=== PATIENT | female | born 1950 | race African-American/Black ===

== ENCOUNTER 2016-10-03 13:28 | Emergency (ER) | payer MEDICAID ==
[~2016-10-03] VITALS: Ht 157.5 cm; Wt 91.0 kg
[~2016-10-03 13:28] MED LIST: CIPR500T4 PO; CLON.2 PO; GABA100C4 PO; LISI-363 PO; METH750T2 PO; METO50CR PO; MOBI15TA PO; POTA-267 PO; PRAV20 PO; TRAM50 PO
[2016-10-03 13:29] VITALS: BP 143/81; PULSE 58; RESP 16; TEMP 98.1; O2SAT 95
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
[2016-10-03 14:25] VITALS: RESP 18; O2SAT 98
[2016-10-03 14:33] LABS: AUTOMATED NEUTROPHIL # 3.5 TH/MM3 (1.8-7.7); BASOPHIL # 0.1 TH/MM3 (0-0.2); EOSINOPHIL # 0.1 TH/MM3 (0-0.4); EOSINOPHIL % 1.4 % (0.0-4.0); HEMATOCRIT 37.3 % (35.0-46.0); HEMO FLAGS DIFF FINAL; LYMPH % 31.2 % (9.0-44.0); MEAN CELL VOLUME 86.5 FL (80.0-100.0); MEAN CORPUSCULAR HEMOGLOBIN 29.4 PG (27.0-34.0); MEAN CORPUSCULAR HGB CONC 33.9 % (32.0-36.0); MONO % 10.4 % (0.0-8.0); PLATELET COUNT 192 TH/MM3 (150-450); RED BLOOD COUNT 4.31 MIL/MM3 (4.00-5.30); RED CELL DISTRIBUTION WIDTH 15.1 % (11.6-17.2); WHITE BLOOD COUNT 6.3 TH/MM3 (4.0-11.0)
[2016-10-03 14:38] LABS: APTT (PATIENT) 28.5 SEC (24.3-30.1); PROTHROMBIN TIME - PATIENT 10.8 SEC (9.8-11.6)
[2016-10-03 14:43] LABS: ALT (GPT) 15 U/L (10-53); ANION GAP 6 MEQ/L (5-15); AST (GOT) 13 U/L (15-37); BLOOD UREA NITROGEN 16 MG/DL (7-18); CHLORIDE 105 MEQ/L (98-107); GLOMERULAR FILTRATION RATE 79 ML/MIN (>89); MAGNESIUM 2.3 MG/DL (1.5-2.5); POTASSIUM 3.9 MEQ/L (3.5-5.1); SODIUM (NA) 140 MEQ/L (136-145)
[2016-10-03 14:53] LABS: ALKALINE PHOSPHATASE 61 U/L (45-117); CREATINE KINASE 177 U/L (26-192); TOTAL BILIRUBIN ADULT 0.4 MG/DL (0.2-1.0)
[2016-10-03] MEDS ORDERED: POTA10CA PO (15:01)
[2016-10-03] MEDS ORDERED: BETA0.052 TOPICAL (15:01)
[2016-10-03] MEDS ORDERED: METF500T PO (15:01)
[2016-10-03] MEDS ORDERED: TRAM50TA PO (15:01)
[2016-10-03] MEDS ORDERED: MECL-62 PO (15:01)
[2016-10-03] MEDS ORDERED: METR500T10 PO (15:01)
[2016-10-03] MEDS ORDERED: FURO1TAB60 PO (15:01)
[2016-10-03] MEDS ORDERED: OXYB5TAB10 PO (15:01)
[2016-10-03] MEDS ORDERED: PROM25TA5 PO (15:01)
[2016-10-03] MEDS ORDERED: LOSA100T PO (15:01)
[2016-10-03] MEDS ORDERED: METO25TA3 PO (15:01)
[2016-10-03] MEDS ORDERED: AMLO5TAB2 PO (15:01)
[2016-10-03 15:06] LABS: CKMB 2.2 NG/ML (0.5-3.6)
--- NOTE | 2016-10-03 15:16 | RADRPT ---
EXAM DATE/TIME: 10/03/2016 14:43 [facility] COMPARISON: No previous studies available for comparison. INDICATIONS : Short of breath, chest pain MEDICAL HISTORY : None. SURGICAL HISTORY : None. ENCOUNTER: Initial ACUITY: 1 month PAIN SCORE: 10/10 LOCATION: Bilateral chest FINDINGS: A single view of the chest demonstrates the lungs to be symmetrically aerated without evidence of mas s, infiltrate or effusion. The cardiomediastinal contours are unremarkable. Descending thoracic is tortuous. Osseous structures are intact. CONCLUSION: The lungs are clear. Tony Steen MD on October 03, 2016 at 15:14 Board Certified Radiologist. This report was verified electronically.
[2016-10-03 15:54] LABS: BACTERIA, URINE RARE /hpf; BLOOD, URINE NEG (NEG); COMMENT (UR) CULT NOT INDICATED; CULTURE IF INDICATED CULT NOT INDICATED; GLUCOSE,URINE NEG (NEG); KETONE, URINE NEG (NEG); NITRITE,URINE NEG (NEG); SQUAMOUS EPITHELIAL CELL URINE 1 /hpf (0-5); URINE COLOR YELLOW (YELLW/STRAW)
--- NOTE | 2016-10-03 15:58 | RADRPT ---
EXAM DATE/TIME: 10/03/2016 14:53 [facility] COMPARISON: No previous studies available for comparison. INDICATIONS : Left leg pain and swelling. MEDICAL HISTORY : Hypertension. Myocardial infarction. Congestive heart failure. Diabetes. Anemia. SURGICAL HISTORY : Polyps removed from rectum. ENCOUNTER: Initial ACUITY: 2 day PAIN SCORE: 6/10 LOCATION: Left leg. TECHNIQUE: Venous ultrasound of the leg was performed from the inguinal ligament to the proximal calf. Real-rupa e, color Doppler and spectral tracing, compression and augmentation techniques were used. FINDINGS: There is normal compressibility of the deep venous system from the inguinal region to the proximal ca lf. No echogenic clot is seen in the lumen of the common femoral, femoral, popliteal, and posterior tibial veins. There is a normal response of the venous system to proximal and distal augmentation an d respiration. CONCLUSION: 1. No DVT identified. Delta Coronado MD on October 03, 2016 at 15:57 Board Certified Radiologist. This report was verified electronically.
[2016-10-03] MEDS ORDERED: KETOROLAC TROMETHAMINE 30 MG/ML (IVP) VIAL IV PUSH ONE (16:15)
[2016-10-03 16:20] VITALS: BP 182/82; PULSE 55; RESP 16; O2SAT 98
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
[2016-10-03] MEDS ORDERED: DICL75TA PO (16:30)
[2016-10-03] MEDS ORDERED: HYDR-3533 PO (16:30)
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
--- NOTE | 2016-10-04 13:42 | EKG ---
Date Performed: 10/03/2016 Time Performed: 14:55:46 PTAGE: 65 years EKG: SINUS BRADYCARDIA MODERATE VOLTAGE CRITERIA FOR LVH, CONSIDER NORMAL VARIANT MODERATE T-WAV E ABNORMALITY, CONSIDER ANTERIOR ISCHEMIA ABNORMAL ECG NO PREVIOUS TRACING DOCTOR: Charles Esquivel Interpretating Date/Time 10/04/2016 13:37:47
== END 2016-10-03 16:56 | disposition home or self-care (01) ==
LOC: NEPC 13:28
DX: M17.12 Unilateral primary osteoarthritis, left knee (principal); R07.89 Other chest pain; R42 Dizziness and giddiness; I50.9 Heart failure, unspecified; I25.2 Old myocardial infarction; I10 Essential (primary) hypertension
CPT/HCPCS: 71010; 73564; 80053; 81001; 82550; 82552; 83690; 83735; 83880; 84439; 84443; 84484; 85025; 85610; 85730; 93005; 93971; 96374; 99285; J1885